=== PATIENT | female | born 1995 | race African-American/Black ===

== ENCOUNTER 2021-05-05 17:33 | Emergency (ER) | payer BC, OTHER ==
[~2021-05-05] VITALS: Ht 170.2 cm; Wt 72.6 kg
[2021-05-05] MEDS ORDERED: SODIUM CHLORIDE 0.9% 500 ML IVB ONE (18:45)
[2021-05-05] MEDS ORDERED: ONDANSETRON HCL 4 MG/2 ML VIAL IV ONE (18:45)
[2021-05-05] MEDS ORDERED: HYDROmorphone HCL 2 MG/ML VL IV ONE (18:45)
[2021-05-05 19:40] LABS: Basophils # (auto) 0.1 10 ^3/uL (0-0.2); Basophils % (auto) 0.6 % (0.0-2.0); Eosinophils # (auto) 0.1 10 ^3/uL (0-0.8); Eosinophils % (auto) 0.6 % (0.0-7.0); Hematocrit 39.1 % (36.0-46.0); Hemoglobin 13.4 g/dL (12.2-16.2); Lymphocytes # (auto) 2.7 10 ^3/uL (0.4-5.4); Lymphocytes % (auto) 29.6 % (10.0-50.0); Mean Corpuscular Hemoglobin 31.7 pg (28.0-32.0); Mean Corpuscular Hgb Conc. 34.3 g/dL (32.0-36.0); Mean Corpuscular Volume 92.5 fL (80.0-100.0); Monocytes # (auto) 0.8 10 ^3/uL (0-1.3); Monocytes % (auto) 9.2 % (0.0-12.0); Neutrophils # (auto) 5.4 10 ^3/uL (1.6-8.6); Red Blood Cells 4.23 10^6/uL (4.0-5.20); Red Cell Distribution Width 12.6 % (11.8-14.3)
[2021-05-05 19:55] LABS: Albumin 3.8 g/dL (3.4-5.0); Potassium 4.2 mmol/L (3.5-5.1)
[2021-05-05 20:01] LABS: BUN/Creatinine Ratio 17.3; Bilirubin, Total 0.6 mg/dL (0.2-1.0); Calcium 9.2 mg/dL (8.5-10.1); Total Protein 7.9 g/dL (6.4-8.2)
[2021-05-05] MEDS ORDERED: IOHEXOL 300 MG/ML 100ML BOTTLE IJ ONE (20:53)
[2021-05-05 20:59] LABS: Urine Bacteria NONE SEEN /hpf (None Seen); Urine Blood Negative /uL (Negative); Urine Mucus FEW (None Seen); Urine Specific Gravity 1.027 (1.001-1.035); Urine WBC 2 /hpf (0 - 5)
[2021-05-06] MEDS ORDERED: PROMETHAZINE HCL 25 MG/ML 1ML IV ONE (00:15)
[2021-05-06] MEDS ORDERED: KETOROLAC TROMETH 30 MG/ML 1ML VIAL IV ONE ×2 (00:15→06:15)
[2021-05-06 06:00] VITALS: BP 101/53
[2021-05-06] MEDS ORDERED: LORazepam 2MG/ML-1ML VIAL ONE (11:32)
== END 2021-05-06 06:31 | disposition still patient (30) ==
LOC: ER 17:33
DX: R10.30 Lower abdominal pain, unspecified (principal); R11.2 Nausea with vomiting, unspecified; J45.909 Unspecified asthma, uncomplicated
CPT/HCPCS: 36415; 74177; 80053; 81001; 83690; 85025; 96361; 96374; 96375; 99285; J1170; J1885; J2060; J2405; J2550; Q9967

== ENCOUNTER 2021-06-16 07:09 | Emergency (ER) | payer BC ==
[~2021-06-16] VITALS: Ht 170.2 cm; Wt 69.4 kg
[2021-06-16 07:38] VITALS: BP 110/65
== END 2021-06-16 08:26 | disposition home or self-care (01) ==
LOC: ER 07:09
DX: J06.9 Acute upper respiratory infection, unspecified (principal); J45.909 Unspecified asthma, uncomplicated; Z88.8 Allergy status to other drugs, medicaments and biological substances; Z20.822 Contact with and (suspected) exposure to COVID-19
CPT/HCPCS: 36415; 87426

== ENCOUNTER 2021-10-21 15:07 | Emergency (ER) | payer MEDICAID, BC ==
[~2021-10-21] VITALS: Ht 170.2 cm; Wt 70.3 kg
[2021-10-21 15:32] VITALS: BP 117/65
[2021-10-21] MEDS ORDERED: ACETAMINOPHEN 500 MG TAB PO ONE (22:45)
[2021-10-21] MEDS ORDERED: ACET-1304 PO (22:51)
[2021-10-21] MEDS ORDERED: AZITTAB PO (22:51)
[2021-10-21] MEDS ORDERED: PSEU1SYP6 PO (22:51)
[2021-10-21] MEDS ORDERED: PRED20TA2 PO (22:51)
== END 2021-10-21 23:21 | disposition home or self-care (01) ==
LOC: ER 15:07
DX: U07.1 COVID-19 (principal); J02.9 Acute pharyngitis, unspecified; R50.9 Fever, unspecified; R53.83 Other fatigue
CPT/HCPCS: 36415; 71045; 87426

== ENCOUNTER 2023-12-25 17:36 | Emergency (ER) | payer OTHER, MEDICAID ==
[~2023-12-25] VITALS: Ht 170.2 cm; Wt 80.2 kg
[~2023-12-25 17:36] MED LIST: ACET-1304 PO; AZITTAB PO; PRED20TA2 PO; PSEU1SYP6 PO
[2023-12-25 18:01] VITALS: BP 117/70; PULSE 91; RESP 18; O2SAT 83
[2023-12-25 19:12] LABS: Urine Bacteria NONE SEEN /hpf (None Seen); Urine Blood TRACE /uL (Negative); Urine Clarity Clear (Clear); Urine Color Yellow (Yellow); Urine Mucus FEW (None Seen); Urine Protein, UAD Negative (Negative); Urine Specific Gravity 1.021 (1.001-1.035); Urine WBC 5 /hpf (0 - 5)
[2023-12-25] MEDS ORDERED: METR-344 PO (19:36)
[2023-12-25] MEDS ORDERED: FLUC150T38 PO (19:36)
[2023-12-27 23:06] LABS: Chlamydia Trachomatis, NAA Negative (Negative); Neisseria gonorrhoeae, NAA Negative (Negative)
== END 2023-12-25 19:48 | disposition home or self-care (01) ==
LOC: ER 17:36
DX: N76.0 Acute vaginitis (principal); J45.909 Unspecified asthma, uncomplicated; Z88.8 Allergy status to other drugs, medicaments and biological substances; Z79.899 Other long term (current) drug therapy
CPT/HCPCS: 81001; 81025